=== PATIENT | female | born 1970 ===

== ENCOUNTER 2020-10-06 17:25 | Inpatient (IN) | payer MEDICAID, OTHER ==
[~2020-10-06] VITALS: Ht 157.5 cm; Wt 108.0 kg
[~2020-10-06 17:25] MED LIST: EPINEPHRINE SYRINGE 0.1 MG/ML, 10ML ONE; ETOMIDATE 20 MG/10 ML ONE; PROPOFOL 10 MG/ML, 100ML IV ONE; ROCURONIUM 10MG/ML,5ML ONE
[2020-10-06] MEDS ORDERED: SODIUM CHLORIDE 0.9% 1,000ML IVBOLUS ONE (17:30)
[2020-10-06 18:08] LABS: BASOPHILS % (AUTO) 1 % (0-1); EOSINOPHILS % (AUTO) 0 % (1-7); LYMPHOCYTES % (AUTO) 17 % (22-44); MEAN CORPUSCULAR HEMOGLOBIN 27.7 pg (27.0-34.8); MONOCYTES % (AUTO) 9 % (2-9); NEUTROPHILS % (AUTO) 73 % (42-75); PLATELET COUNT 287 x10^3/uL (130-400); RED BLOOD COUNT 3.82 x10^6/uL (3.82-5.3)
[2020-10-06 18:37] LABS: ALANINE AMINOTRANSFERASE 61 U/L (12-78); ALBUMIN 3.1 g/dL (3.4-5.0); ANION GAP 11 mmol/L (5-15); CALCIUM 9.3 mg/dL (8.5-10.1); CHLORIDE 92 mmol/L (98-107); CREATININE 1.67 mg/dL (0.55-1.02)
[2020-10-06 18:39] LABS: ALKALINE PHOSPHATASE 164 U/L (45-117); BILIRUBIN,TOTAL 0.8 mg/dL (0.2-1.0); TOTAL PROTEIN 7.8 g/dL (6.4-8.2)
[2020-10-06] MEDS ORDERED: ACETAMINOPHEN 650 MG SUPP ONE (18:39)
[2020-10-06 18:40] LABS: SALICYLATE LEVEL < 1.7 mg/dL (2.8-20.0)
[2020-10-06] MEDS ORDERED: ACETAMINOPHEN 650 MG SUPP PR ONE (19:00)
[2020-10-06] MEDS ORDERED: ACETAMINOPHEN 500 MG TABLET PO ONE (19:00)
[2020-10-06] MEDS ORDERED: CEFTRIAXONE 1,000 MG in DEXTROSE 5% 50 ML IVPB ONE (19:00)
--- NOTE | 2020-10-06 19:05 | NUR ---
LATE ENTRY FOR 1850, PT RECTAL TEMP 102.[address] TEAGUE. SEPSIS WORKUP DISCUSSED AND NEW ORDERS REC'D. SBAR RPT TO CHARLI JACKSON.
--- NOTE | 2020-10-06 19:26 | NUR ---
PT BP TRENDING DOWN. BC X2 DRAWN AND ANTIBIOTICS STARTED NOTED. DR TEAGUE AT [facility], SEPSIS DISCUSSED. PT HAS REC'D 1000ML NS 2ND LITER OF NS ORDERED. DR TEAGUE GIVING BOLUS BASED ON PT IDEAL BODY WEIGHT SO PT WILL RECIEVE A TOTAL OF 2000ML NSFOR THE SEPSIS BOLUS. CHARLI JACKSON UPDATED.
[2020-10-06 19:37] LABS: MICROSCOPIC AUTO
[2020-10-06] MEDS ORDERED: NALOXONE 0.4 MG/ML, 1ML ONE (19:53)
[2020-10-06] MEDS ORDERED: NALOXONE 1 MG/ML, 2ML ONE (19:53)
--- NOTE | 2020-10-06 20:04 | NUR ---
DR SOMERS AT BEDSIDE FOR INTUBATION AT THIS TIME PT INTUBATED WITH 20 OF ETOMIDATE AND 100 OF FROY WITH 7.5 ET TUBE 20 AT THE LIP. Addendum: 10/06/20 at 2228 by [email or web address] VENT SETTINGS 70% FIO2, PEEP 5, VT 450, RATE 18
[2020-10-06] MEDS: PROPOFOL 100 ML IV PRN (20:10)
--- NOTE | 2020-10-06 20:10 | NUR ---
this rn went to check on pt, pt was recieving 2nd liter ns per erp. and 02 on nc was noted to be in the low 80's. fluids stopped. pt's bp was trending down and rechecked mutliple time with same results. pt still not resonsive. norebreather did not help 02 sats as well. erp was at bedside, pt was prepped for intubation. report was given to neno solares as well.
--- NOTE | 2020-10-06 20:22 | NUR ---
pilar Morton tech -2020 hours - starting iv and insert central line first per physician
[2020-10-06 20:30] LABS: AMPHETAMINE SCREEN, URINE Negative (Negative); BARBITURATE SCREEN, URINE Negative (Negative); BENZODIAZEPINE SCREEN, URINE Negative (Negative); CANNABINOID SCREEN, URINE Negative (Negative); COCAINE SCREEN, URINE Negative (Negative); METHADONE SCREEN, URINE Negative (Negative); OPIATE SCREEN, URINE Positive (Negative)
[2020-10-06] MEDS ORDERED: AZITHROMYCIN 500 MG in SODIUM CHLORIDE 0.9% 250 ML IV ONE (20:30)
[2020-10-06] MEDS ORDERED: ETOMIDATE 20 MG/10 ML IVPush ONE (20:30)
[2020-10-06] MEDS ORDERED: NOREPINEPHRINE 8 MG in SODIUM CHLORIDE 0.9% 242 ML IV PRN ×2 (20:30→23:00)
[2020-10-06] MEDS ORDERED: ROCURONIUM 10 MG/ML,10ML IVPush ONE (20:30)
--- NOTE | 2020-10-06 21:05 | NUR ---
DR SOMERS AT BEDSIDE FOR CENTRAL LINE PLACEMENT
[2020-10-06] MEDS ORDERED: FENTANYL PF 100 MCG/2ML ONE ×2 (21:11→22:38)
[2020-10-06] MEDS ORDERED: SODIUM CHLORIDE 0.9% 1,000 ML IV SCH (21:30)
[2020-10-06] MEDS ORDERED: ACETAMINOPHEN 650 MG/20.3 ML UDC PO/NG PRN (21:30)
[2020-10-06] MEDS ORDERED: PHARMACY MAY ADJ FOR RENAL FX MC SCH (21:30)
[2020-10-06] MEDS ORDERED: SENNA/DOCUSATE TABLET NG PRN (21:30)
[2020-10-06] MEDS ORDERED: DEXTROSE 4 GM TAB.CHEW PO PRN (21:30)
[2020-10-06] MEDS ORDERED: FENTANYL PF 100 MCG/2ML IVPush ONE (21:30)
[2020-10-06] MEDS ORDERED: DEXTROSE 50%, 50ML SYRINGE IVPush PRN (21:30)
[2020-10-06] MEDS ORDERED: LACTULOSE 20 GM/30 ML UDC NG PRN (21:30)
[2020-10-06] MEDS ORDERED: ENOXAPARIN 40 MG/0.4 ML SQ SCH (21:30)
[2020-10-06] MEDS ORDERED: SENNA 176 MG/5 ML ORAL SOL NG PRN (21:30)
[2020-10-06] MEDS ORDERED: LIDOCAINE-MPF 1%, 2ML ENDO PRN (21:30)
[2020-10-06] MEDS ORDERED: BISACODYL 10 MG SUPP PR PRN (21:30)
[2020-10-06] MEDS ORDERED: GLUCAGON 1 MG IM PRN (21:30)
--- NOTE | 2020-10-06 21:43 | NUR ---
LEVOPHED GTT STARTED AT THIS TIME DUE TO HYPOTENSION OF 95/37
[2020-10-06] MEDS: MIDAZOLAM HCL 50 MG in SODIUM CHLORIDE 0.9% 40 ML IV PRN (22:00)
[2020-10-06] MEDS ORDERED: VANCOMYCIN PER PHARMACY MC PRN (22:00)
--- NOTE | 2020-10-06 22:00 | NUR ---
VERSED GTT STARTED AT THIS TIME
[2020-10-06] MEDS ORDERED: FAMOTIDINE 20 MG/2 ML ONE (22:14)
[2020-10-06] MEDS: FAMOTIDINE 20 MG/2 ML IV SCH (22:22)
[2020-10-06] MEDS: FENTANYL PF 100 MCG/2ML IVPush PRN (22:42)
--- NOTE | 2020-10-06 22:51 | NUR ---
DR MICHELLE AT BEDSIDE FOR ADMIT AT THIS TIME
--- NOTE | 2020-10-06 23:01 | NUR ---
PER DR MICHELLE CALCULATE FLUID BOLUS AMNT AND FINISH THAT AT THIS TIME. ADDITIONAL 1348 ML NS STARTED
[2020-10-06] MEDS ORDERED: VANCOMYCIN 2,500 MG in SODIUM CHLORIDE 0.9% 500 ML IV ONE (23:45)
--- NOTE | 2020-10-07 | NUR ---
LAURA SPIVEY SENT TO PHARM FOR KETURAH AT THIS TIME
[2020-10-07] MEDS: PIPERACILLIN/TAZO 3.375 GM in DEXTROSE 5% 50 ML IV SCH ×2 (00:05→05:45)
--- NOTE | 2020-10-07 00:05 | NUR ---
ZOSYN STARTED AT THIS TIME.
[2020-10-07] MEDS ORDERED: FENTANYL PF 100 MCG/2ML ONE (00:39)
[2020-10-07] MEDS ORDERED: PROPOFOL 100 ML IV ONE (00:52)
--- NOTE | 2020-10-07 00:55 | NUR ---
LEXIO STARTED AT THIS TIME
--- NOTE | 2020-10-07 01:42 | NUR ---
REPORT TO ANDI AUGUSTIN PT READY FOR TRANSFER TO 771
[2020-10-07] MEDS ORDERED: PHARMACOKINETIC CONSULTATION MC ONE (02:30)
[2020-10-07] MEDS ORDERED: PHARMACOKINETIC MONITORING MC PRN (02:30)
[2020-10-07] MEDS: INSULIN LISPRO 100 UNITS/ML, PEN SQ-INSULIN SCH ×4 (02:54→20:35)
[2020-10-07 05:30] LABS: ANION GAP 6 mmol/L (5-15); CALCIUM 8.2 mg/dL (8.5-10.1); CHLORIDE 106 mmol/L (98-107); CREATININE 0.91 mg/dL (0.55-1.02)
[2020-10-07 05:31] LABS: BASOPHILS % (AUTO) 1 % (0-1); EOSINOPHILS % (AUTO) 0 % (1-7); LYMPHOCYTES % (AUTO) 15 % (22-44); MEAN CORPUSCULAR HEMOGLOBIN 27.5 pg (27.0-34.8); MEAN CORPUSCULAR HGB CONC 32.6 g/dL (32.4-35.8); MEAN PLATELET VOLUME 7.8 fL (7.4-10.4); MONOCYTES % (AUTO) 9 % (2-9); NEUTROPHILS % (AUTO) 76 % (42-75); PLATELET COUNT 249 x10^3/uL (130-400); RED BLOOD COUNT 3.68 x10^6/uL (3.82-5.3); RED CELL DISTRIBUTION WIDTH 16.6 % (9.6-15.2)
[2020-10-07] MEDS: MIDAZOLAM HCL 50 MG in SODIUM CHLORIDE 0.9% 40 ML IV PRN ×2 (05:45→15:28)
[2020-10-07] MEDS ORDERED: MAGNESIUM SULFATE PMX 4GM/100M 100 ML IVPB ONE (08:00)
[2020-10-07] MEDS: FAMOTIDINE 20 MG/2 ML IV SCH ×2 (08:45→21:04)
[2020-10-07] MEDS: SODIUM CHLORIDE FLUSH 10ML SYR IVF SCH ×2 (08:45→21:04)
[2020-10-07] MEDS: INSULIN GLARGINE 100 UNITS/ML, PEN SQ-INSULIN SCH ×2 (08:45→20:34)
[2020-10-07] MEDS: POTASSIUM CHLORIDE 20 MEQ PACKET PO SCH ×2 (08:45→15:31)
[2020-10-07 08:47] LABS: SALICYLATE LEVEL < 1.7 mg/dL (2.8-20.0)
[2020-10-07] MEDS: METRONIDAZOLE PMX 500MG/100ML 100 ML IV SCH ×2 (09:02→14:25)
[2020-10-07] MEDS: CEFTRIAXONE 2 GM in DEXTROSE 5% 50 ML IVPB SCH (09:02)
[2020-10-07] MEDS: FENTANYL PF 100 MCG/2ML IVPush PRN ×2 (13:09→19:33)
[2020-10-07] MEDS: ENOXAPARIN 40 MG/0.4 ML SQ SCH (15:30)
[2020-10-07] MEDS ORDERED: PANT40GR PO (22:40)
[2020-10-07] MEDS ORDERED: GLIP10TA13 PO (22:46)
[2020-10-07] MEDS ORDERED: FAMO20TA7 PO (22:50)
[2020-10-07] MEDS ORDERED: FURO20TA3 PO (22:51)
[2020-10-07] MEDS ORDERED: METF500T27 PO (22:54)
[2020-10-07] MEDS ORDERED: ATOR40TA78 PO (22:56)
[2020-10-07] MEDS ORDERED: HYDR1TAB53 PO (22:58)
[2020-10-07] MEDS ORDERED: GABA800T5 PO (23:00)
[2020-10-07] MEDS ORDERED: VENL150C6 PO (23:02)
[2020-10-07] MEDS ORDERED: LOSA100T2 PO (23:04)
[2020-10-07] MEDS ORDERED: SUCR1TAB PO (23:06)
[2020-10-07] MEDS ORDERED: BIOT50002 PO (23:09)
[2020-10-08] MEDS: METRONIDAZOLE PMX 500MG/100ML 100 ML IV SCH ×4 (00:30→23:59)
[2020-10-08] MEDS: FENTANYL PF 100 MCG/2ML IVPush PRN ×4 (00:43→09:16)
[2020-10-08] MEDS: INSULIN LISPRO 100 UNITS/ML, PEN SQ-INSULIN SCH ×4 (03:01→21:14)
[2020-10-08] MEDS: ENOXAPARIN 40 MG/0.4 ML SQ SCH ×2 (03:03→15:37)
[2020-10-08 03:15] LABS: BASOPHILS % (AUTO) 1 % (0-1); EOSINOPHILS % (AUTO) 2 % (1-7); LYMPHOCYTES % (AUTO) 24 % (22-44); MEAN CORPUSCULAR HEMOGLOBIN 27.6 pg (27.0-34.8); MEAN CORPUSCULAR HGB CONC 32.8 g/dL (32.4-35.8); MEAN PLATELET VOLUME 7.5 fL (7.4-10.4); MONOCYTES % (AUTO) 9 % (2-9); NEUTROPHILS % (AUTO) 64 % (42-75); PLATELET COUNT 233 x10^3/uL (130-400); RED BLOOD COUNT 3.61 x10^6/uL (3.82-5.3); RED CELL DISTRIBUTION WIDTH 16.9 % (9.6-15.2)
[2020-10-08 03:20] LABS: ANION GAP 7 mmol/L (5-15); CALCIUM 8.2 mg/dL (8.5-10.1); CHLORIDE 103 mmol/L (98-107); CREATININE 0.51 mg/dL (0.55-1.02)
[2020-10-08] MEDS: MIDAZOLAM HCL 50 MG in SODIUM CHLORIDE 0.9% 40 ML IV PRN (03:52)
[2020-10-08] MEDS: SODIUM CHLORIDE 0.9% 1,000 ML IV SCH ×2 (06:17→21:23)
[2020-10-08] MEDS: CEFTRIAXONE 2 GM in DEXTROSE 5% 50 ML IVPB SCH (07:16)
[2020-10-08] MEDS: INSULIN GLARGINE 100 UNITS/ML, PEN SQ-INSULIN SCH ×2 (07:21→19:54)
[2020-10-08] MEDS: SODIUM CHLORIDE FLUSH 10ML SYR IVF SCH ×2 (07:25→21:13)
[2020-10-08] MEDS: FAMOTIDINE 20 MG/2 ML IV SCH ×2 (07:25→21:23)
[2020-10-08] MEDS ORDERED: FENTANYL PF 1,000 MCG in SODIUM CHLORIDE 0.9% 80 ML IV PRN (09:00)
[2020-10-08] MEDS ORDERED: SODIUM PHOSPHATE 20 MMOL in SODIUM CHLORIDE 0.9% 500 ML IV ONE (10:30)
[2020-10-08] MEDS: DEXMEDETOMIDINE 400 MCG in SODIUM CHLORIDE 0.9% 96 ML IV PRN ×4 (11:03→19:46)
--- NOTE | 2020-10-08 13:28 | NUR ---
IF TUBE FEED recommendation needed: Recommend Vital High Protein. Goal: 50 ml/hr on propofol, 60 ml/hr off propofol Addendum: 10/08/20 at [address] Amended: Links added.
[2020-10-08] MEDS: POTASSIUM CHLORIDE 20 MEQ PACKET PO SCH (15:37)
[2020-10-08] MEDS: FENTANYL PF 2,500 MCG in SODIUM CHLORIDE 0.9% 200 ML IV PRN (21:07)
[2020-10-08] MEDS: GABAPENTIN 250 MG/5 ML ORAL SOL NG SCH (21:13)
[2020-10-08] MEDS: DEXMEDETOMIDINE 1,000 MCG in SODIUM CHLORIDE 0.9% 240 ML IV PRN (23:05)
[2020-10-09] MEDS: INSULIN LISPRO 100 UNITS/ML, PEN SQ-INSULIN SCH ×4 (02:53→21:12)
[2020-10-09] MEDS: ENOXAPARIN 40 MG/0.4 ML SQ SCH ×2 (03:13→15:19)
[2020-10-09] MEDS: PROPOFOL 100 ML IV PRN ×5 (03:22→22:29)
[2020-10-09 04:16] LABS: BASOPHILS % (AUTO) 1 % (0-1); EOSINOPHILS % (AUTO) 4 % (1-7); LYMPHOCYTES % (AUTO) 35 % (22-44); MEAN CORPUSCULAR HEMOGLOBIN 27.5 pg (27.0-34.8); MEAN CORPUSCULAR HGB CONC 32.6 g/dL (32.4-35.8); MEAN PLATELET VOLUME 7.5 fL (7.4-10.4); MONOCYTES % (AUTO) 9 % (2-9); NEUTROPHILS % (AUTO) 52 % (42-75); PLATELET COUNT 274 x10^3/uL (130-400); RED BLOOD COUNT 3.68 x10^6/uL (3.82-5.3); RED CELL DISTRIBUTION WIDTH 16.7 % (9.6-15.2)
[2020-10-09 04:25] LABS: ANION GAP 8 mmol/L (5-15); CALCIUM 7.5 mg/dL (8.5-10.1); CHLORIDE 106 mmol/L (98-107); CREATININE 0.44 mg/dL (0.55-1.02); TRIGLYCERIDES 249 mg/dL (50-200)
[2020-10-09] MEDS: GABAPENTIN 250 MG/5 ML ORAL SOL NG SCH ×4 (05:32→21:58)
[2020-10-09] MEDS ORDERED: MAGNESIUM SULFATE PMX 2GM/50ML 50 ML IV ONE (07:00)
[2020-10-09] MEDS: CEFTRIAXONE 2 GM in DEXTROSE 5% 50 ML IVPB SCH (07:28)
[2020-10-09] MEDS: METRONIDAZOLE PMX 500MG/100ML 100 ML IV SCH ×3 (07:28→23:39)
[2020-10-09] MEDS: INSULIN GLARGINE 100 UNITS/ML, PEN SQ-INSULIN SCH ×2 (07:32→19:33)
[2020-10-09] MEDS: SODIUM CHLORIDE FLUSH 10ML SYR IVF SCH ×2 (07:35→21:58)
[2020-10-09] MEDS: DEXMEDETOMIDINE 1,000 MCG in SODIUM CHLORIDE 0.9% 240 ML IV PRN (07:50)
[2020-10-09] MEDS: FUROSEMIDE 40 MG/4 ML IV SCH ×2 (09:06→21:58)
[2020-10-09] MEDS: FAMOTIDINE 20 MG/2 ML IV SCH ×2 (09:06→21:58)
[2020-10-09] MEDS: POTASSIUM CHLORIDE 20 MEQ PACKET PO SCH (09:06)
[2020-10-09] MEDS: FENTANYL PF 2,500 MCG in SODIUM CHLORIDE 0.9% 200 ML IV PRN (12:45)
[2020-10-09] MEDS: FERROUS SULFATE 220 MG/5 ML ORAL SOL PO SCH (15:19)
[2020-10-10] MEDS: PROPOFOL 100 ML IV PRN ×2 (01:37→05:56)
[2020-10-10] MEDS: INSULIN LISPRO 100 UNITS/ML, PEN SQ-INSULIN SCH ×4 (03:18→20:54)
[2020-10-10] MEDS: ENOXAPARIN 40 MG/0.4 ML SQ SCH ×2 (03:26→16:10)
[2020-10-10 04:37] LABS: BASOPHILS % (AUTO) 1 % (0-1); EOSINOPHILS % (AUTO) 5 % (1-7); LYMPHOCYTES % (AUTO) 39 % (22-44); MEAN CORPUSCULAR HEMOGLOBIN 27.5 pg (27.0-34.8); MEAN CORPUSCULAR HGB CONC 32.7 g/dL (32.4-35.8); MEAN PLATELET VOLUME 7.3 fL (7.4-10.4); MONOCYTES % (AUTO) 9 % (2-9); NEUTROPHILS % (AUTO) 47 % (42-75); PLATELET COUNT 310 x10^3/uL (130-400); RED BLOOD COUNT 3.66 x10^6/uL (3.82-5.3); RED CELL DISTRIBUTION WIDTH 16.4 % (9.6-15.2)
[2020-10-10 04:38] LABS: ANION GAP 7 mmol/L (5-15); CALCIUM 7.8 mg/dL (8.5-10.1); CHLORIDE 104 mmol/L (98-107)
[2020-10-10 04:39] LABS: CREATININE 0.58 mg/dL (0.55-1.02)
[2020-10-10] MEDS: GABAPENTIN 250 MG/5 ML ORAL SOL NG SCH ×3 (06:03→16:10)
[2020-10-10] MEDS ORDERED: MAGNESIUM SULFATE PMX 2GM/50ML 50 ML IV ONE (07:00)
[2020-10-10] MEDS: CEFTRIAXONE 2 GM in DEXTROSE 5% 50 ML IVPB SCH (07:34)
[2020-10-10] MEDS: FERROUS SULFATE 220 MG/5 ML ORAL SOL PO SCH ×2 (07:49→17:21)
[2020-10-10] MEDS: POTASSIUM CHLORIDE 20 MEQ PACKET PO SCH ×3 (07:49→18:34)
[2020-10-10] MEDS: METRONIDAZOLE PMX 500MG/100ML 100 ML IV SCH ×2 (08:44→16:10)
[2020-10-10] MEDS: FUROSEMIDE 40 MG/4 ML IV SCH ×2 (08:55→20:51)
[2020-10-10] MEDS: FAMOTIDINE 20 MG/2 ML IV SCH (08:55)
[2020-10-10] MEDS: INSULIN GLARGINE 100 UNITS/ML, PEN SQ-INSULIN SCH ×2 (09:04→20:53)
[2020-10-10] MEDS: SODIUM CHLORIDE FLUSH 10ML SYR IVF SCH ×2 (09:05→20:52)
[2020-10-10] MEDS ORDERED: LABETALOL 5MG/ML, 20ML IVPush PRN (11:00)
[2020-10-10] MEDS ORDERED: ENALAPRILAT 1.25 MG/ML, 2ML IV PRN (13:30)
[2020-10-10] MEDS: GABAPENTIN 400 MG CAPSULE PO SCH (20:52)
[2020-10-10] MEDS ORDERED: FAMOTIDINE 20 MG/2 ML IV SCH (21:00)
[2020-10-11] MEDS: POTASSIUM CHLORIDE 20 MEQ PACKET PO SCH (00:12)
[2020-10-11] MEDS: METRONIDAZOLE PMX 500MG/100ML 100 ML IV SCH ×2 (00:13→09:22)
[2020-10-11] MEDS ORDERED: ONDANSETRON 2MG/ML, 2ML ONE (02:49)
[2020-10-11] MEDS: ONDANSETRON 2MG/ML, 2ML IVPush PRN ×2 (02:58→08:19)
[2020-10-11] MEDS: HYDROcodone/APAP 5/325 TABLET PO PRN (04:10)
[2020-10-11] MEDS: GABAPENTIN 400 MG CAPSULE PO SCH ×4 (06:00→20:49)
[2020-10-11] MEDS: ENOXAPARIN 40 MG/0.4 ML SQ SCH (06:00)
[2020-10-11] MEDS: CEFTRIAXONE 2 GM in DEXTROSE 5% 50 ML IVPB SCH (08:11)
[2020-10-11] MEDS: INSULIN LISPRO 100 UNITS/ML, PEN SQ-INSULIN SCH ×4 (08:16→21:00)
[2020-10-11] MEDS: INSULIN GLARGINE 100 UNITS/ML, PEN SQ-INSULIN SCH ×2 (08:17→21:00)
[2020-10-11] MEDS: FAMOTIDINE 20 MG TABLET PO SCH ×2 (08:19→20:49)
[2020-10-11 08:42] LABS: BASOPHILS % (AUTO) 1 % (0-1); EOSINOPHILS % (AUTO) 2 % (1-7); LYMPHOCYTES % (AUTO) 31 % (22-44); MEAN CORPUSCULAR HEMOGLOBIN 27.4 pg (27.0-34.8); MEAN CORPUSCULAR HGB CONC 32.4 g/dL (32.4-35.8); MEAN PLATELET VOLUME 7.4 fL (7.4-10.4); MONOCYTES % (AUTO) 9 % (2-9); NEUTROPHILS % (AUTO) 57 % (42-75); PLATELET COUNT 533 x10^3/uL (130-400); RED BLOOD COUNT 4.82 x10^6/uL (3.82-5.3); RED CELL DISTRIBUTION WIDTH 17.1 % (9.6-15.2)
[2020-10-11 08:55] LABS: ANION GAP 14 mmol/L (5-15); CALCIUM 9.4 mg/dL (8.5-10.1); CHLORIDE 99 mmol/L (98-107)
[2020-10-11 08:56] LABS: CREATININE 0.71 mg/dL (0.55-1.02)
[2020-10-11] MEDS: FUROSEMIDE 40 MG/4 ML IV SCH (09:22)
[2020-10-11] MEDS: FERROUS SULFATE 325 MG TABLET PO SCH ×2 (09:22→16:54)
[2020-10-11] MEDS: SODIUM CHLORIDE FLUSH 10ML SYR IVF SCH ×2 (09:23→21:01)
[2020-10-11] MEDS ORDERED: OMNIPAQUE 350 MG/ML, 100ML BOTTLE ONE (10:54)
[2020-10-11 11:19] VITALS: BP 139/89
[2020-10-11] MEDS ORDERED: SENNOSIDES 8.6 MG TABLET PO PRN (11:30)
[2020-10-11] MEDS: SODIUM CHLORIDE 0.9% 1,000 ML IV SCH ×2 (12:03→22:15)
[2020-10-11 13:07] VITALS: BP 144/95
[2020-10-11 14:01] VITALS: BP 126/85
[2020-10-11] MEDS: PIPERACILLIN/TAZO 4.5 GM in DEXTROSE 5% 100 ML IV SCH ×2 (15:38→23:22)
[2020-10-11 17:10] LABS: MICROSCOPIC AUTO
[2020-10-11 20:55] VITALS: BP 124/72
[2020-10-12 01:07] VITALS: BP 116/79
[2020-10-12 05:53] LABS: BASOPHILS % (AUTO) 1 % (0-1); EOSINOPHILS % (AUTO) 3 % (1-7); LYMPHOCYTES % (AUTO) 34 % (22-44); MEAN CORPUSCULAR HEMOGLOBIN 27.8 pg (27.0-34.8); MEAN CORPUSCULAR HGB CONC 32.6 g/dL (32.4-35.8); MEAN PLATELET VOLUME 7.6 fL (7.4-10.4); MONOCYTES % (AUTO) 11 % (2-9); NEUTROPHILS % (AUTO) 51 % (42-75); PLATELET COUNT 490 x10^3/uL (130-400); RED BLOOD COUNT 4.35 x10^6/uL (3.82-5.3); RED CELL DISTRIBUTION WIDTH 16.9 % (9.6-15.2)
[2020-10-12] MEDS: GABAPENTIN 400 MG CAPSULE PO SCH ×4 (06:08→20:09)
[2020-10-12 07:34] LABS: ANION GAP 8 mmol/L (5-15); CALCIUM 9.2 mg/dL (8.5-10.1); CHLORIDE 99 mmol/L (98-107); CREATININE 0.68 mg/dL (0.55-1.02)
[2020-10-12 07:44] VITALS: BP 135/86
[2020-10-12] MEDS: FERROUS SULFATE 325 MG TABLET PO SCH ×2 (08:32→17:36)
[2020-10-12] MEDS: FAMOTIDINE 20 MG TABLET PO SCH ×2 (08:32→20:09)
[2020-10-12] MEDS: PIPERACILLIN/TAZO 4.5 GM in DEXTROSE 5% 100 ML IV SCH ×3 (08:32→23:40)
[2020-10-12] MEDS: INSULIN GLARGINE 100 UNITS/ML, PEN SQ-INSULIN SCH ×2 (08:36→20:26)
[2020-10-12] MEDS: INSULIN LISPRO 100 UNITS/ML, PEN SQ-INSULIN SCH ×4 (08:37→20:26)
[2020-10-12] MEDS: SODIUM CHLORIDE FLUSH 10ML SYR IVF SCH ×2 (09:00→20:07)
[2020-10-12] MEDS ORDERED: ENOXAPARIN 40 MG/0.4 ML SQ SCH (09:00)
[2020-10-12 12:36] VITALS: BP 129/83
[2020-10-12 18:42] VITALS: BP 139/79
[2020-10-12] MEDS: ENOXAPARIN 40 MG/0.4 ML SQ SCH (21:29)
[2020-10-12] MEDS: HYDROcodone/APAP 5/325 TABLET PO PRN (23:50)
[2020-10-13 02:01] VITALS: BP 141/85
[2020-10-13] MEDS: GABAPENTIN 400 MG CAPSULE PO SCH ×4 (05:56→20:54)
[2020-10-13 06:12] LABS: MEAN CORPUSCULAR HEMOGLOBIN 28.1 pg (27.0-34.8); MEAN CORPUSCULAR HGB CONC 33.3 g/dL (32.4-35.8); MEAN PLATELET VOLUME 7.6 fL (7.4-10.4); PLATELET COUNT 427 x10^3/uL (130-400); RED BLOOD COUNT 4.08 x10^6/uL (3.82-5.3); RED CELL DISTRIBUTION WIDTH 17.2 % (9.6-15.2)
[2020-10-13 06:39] LABS: CHLORIDE 100 mmol/L (98-107)
[2020-10-13 06:43] LABS: ANION GAP 11 mmol/L (5-15); CALCIUM 9.3 mg/dL (8.5-10.1); CREATININE 0.56 mg/dL (0.55-1.02)
[2020-10-13 06:50] LABS: <PLATELET ESTIMATE> INCREASED; <PLT MORPHOLOGY> NORMAL PLT MORPH; BAND#(MANUAL) 0.31 x10^3/uL; BANDS%(MANUAL) 3 % (0-7); EOS% (MANUAL) 2 % (1-7); LYMPH#(MANUAL) 3.16 x10^3/uL (1-3.4); LYMPHS% (MANUAL) 31 % (22-44); METAMYELOCYTES% (MANUAL) 2 % (0-1); MONOS#(MANUAL) 0.71 x10^3/uL (0.3-2.7); MONOS% (MANUAL) 7 % (2-9); MYELOCYTES% (MANUAL) 1 % (0-0); PMNS WITH VACUOLES 1+; POLYCHROMASIA 1+; SEG#(MANUAL) 5.51 x10^3/uL (1.8-6.8); SEGS% (MANUAL) 54 % (42-75)
[2020-10-13 07:30] VITALS: BP 145/98
[2020-10-13] MEDS: FAMOTIDINE 20 MG TABLET PO SCH ×2 (08:19→20:54)
[2020-10-13] MEDS: FERROUS SULFATE 325 MG TABLET PO SCH ×2 (08:19→16:49)
[2020-10-13] MEDS: PIPERACILLIN/TAZO 4.5 GM in DEXTROSE 5% 100 ML IV SCH ×2 (08:19→16:26)
[2020-10-13] MEDS: INSULIN LISPRO 100 UNITS/ML, PEN SQ-INSULIN SCH ×4 (08:21→21:20)
[2020-10-13] MEDS: INSULIN GLARGINE 100 UNITS/ML, PEN SQ-INSULIN SCH ×2 (08:21→21:20)
[2020-10-13] MEDS ORDERED: MAGNESIUM SULFATE PMX 2GM/50ML 50 ML IV ONE (08:30)
[2020-10-13] MEDS: ENOXAPARIN 40 MG/0.4 ML SQ SCH ×2 (09:00→20:54)
[2020-10-13] MEDS: SODIUM CHLORIDE FLUSH 10ML SYR IVF SCH ×2 (09:00→20:31)
[2020-10-13] MEDS: POTASSIUM CHLORIDE 20 MEQ TAB.ER.PRT PO SCH ×3 (09:46→20:54)
[2020-10-13] MEDS: MAGNESIUM OXIDE 400 MG TABLET PO SCH (09:46)
[2020-10-13 12:34] VITALS: BP 152/100
[2020-10-13] MEDS: HYDROcodone/APAP 5/325 TABLET PO PRN (19:19)
[2020-10-13 19:23] VITALS: BP 149/110
[2020-10-14] MEDS: PIPERACILLIN/TAZO 4.5 GM in DEXTROSE 5% 100 ML IV SCH ×4 (00:49→23:51)
[2020-10-14 02:59] VITALS: BP 167/90
[2020-10-14 05:26] LABS: MEAN PLATELET VOLUME 7.5 fL (7.4-10.4); PLATELET COUNT 427 x10^3/uL (130-400)
[2020-10-14 05:30] LABS: ANION GAP 7 mmol/L (5-15); CALCIUM 8.7 mg/dL (8.5-10.1); CHLORIDE 104 mmol/L (98-107)
[2020-10-14] MEDS: GABAPENTIN 400 MG CAPSULE PO SCH ×4 (05:32→20:36)
[2020-10-14 05:40] LABS: CREATININE 0.61 mg/dL (0.55-1.02)
[2020-10-14 06:06] LABS: <PLATELET ESTIMATE> INCREASED; <PLT MORPHOLOGY> NORMAL PLT MORPH; ANISOCYTOSIS 1+; EOS#(MANUAL) 0.23 x10^3/uL (0.0-0.4); EOS% (MANUAL) 2 % (1-7); LYMPHS% (MANUAL) 41 % (22-44); MONOS#(MANUAL) 0.59 x10^3/uL (0.3-2.7); MONOS% (MANUAL) 5 % (2-9); MYELOCYTES# (MANUAL) 0.12 x10^3/uL (0-0); MYELOCYTES% (MANUAL) 1 % (0-0); POLYCHROMASIA 1+; SEG#(MANUAL) 5.97 x10^3/uL (1.8-6.8); SEGS% (MANUAL) 51 % (42-75)
[2020-10-14] MEDS: FERROUS SULFATE 325 MG TABLET PO SCH ×2 (08:00→16:49)
[2020-10-14] MEDS: FAMOTIDINE 20 MG TABLET PO SCH ×2 (08:04→20:36)
[2020-10-14] MEDS: ENOXAPARIN 40 MG/0.4 ML SQ SCH ×2 (08:04→20:36)
[2020-10-14] MEDS: SODIUM CHLORIDE FLUSH 10ML SYR IVF SCH ×2 (08:04→20:40)
[2020-10-14] MEDS: MAGNESIUM OXIDE 400 MG TABLET PO SCH (08:04)
[2020-10-14] MEDS: INSULIN GLARGINE 100 UNITS/ML, PEN SQ-INSULIN SCH ×2 (08:05→20:37)
[2020-10-14] MEDS ORDERED: CYCL10TA2 PO (08:08)
[2020-10-14] MEDS ORDERED: TIZA4CAP PO (08:08)
[2020-10-14] MEDS: INSULIN LISPRO 100 UNITS/ML, PEN SQ-INSULIN SCH ×4 (08:11→20:36)
[2020-10-14 08:12] VITALS: BP 137/99
[2020-10-14 14:46] VITALS: BP 156/99
[2020-10-14] MEDS: LOSARTAN 100 MG TAB PO SCH (18:13)
[2020-10-14] MEDS: TIZANIDINE 4MG TABLET PO SCH (20:36)
[2020-10-14 20:41] VITALS: BP 155/99
[2020-10-14] MEDS: CYCLOBENZAPRINE 10 MG TABLET PO PRN (23:45)
[2020-10-15 00:46] VITALS: BP 102/70
[2020-10-15] MEDS: HYDROcodone/APAP 5/325 TABLET PO PRN ×2 (00:53→14:48)
[2020-10-15 05:18] LABS: MEAN CORPUSCULAR HEMOGLOBIN 27.8 pg (27.0-34.8); MEAN CORPUSCULAR HGB CONC 32.5 g/dL (32.4-35.8); MEAN PLATELET VOLUME 7.3 fL (7.4-10.4); PLATELET COUNT 409 x10^3/uL (130-400); RED BLOOD COUNT 3.91 x10^6/uL (3.82-5.3); RED CELL DISTRIBUTION WIDTH 17.1 % (9.6-15.2)
[2020-10-15 05:36] LABS: CHLORIDE 104 mmol/L (98-107)
[2020-10-15 05:47] LABS: ALANINE AMINOTRANSFERASE 54 U/L (12-78); ALBUMIN 2.3 g/dL (3.4-5.0); ALKALINE PHOSPHATASE 110 U/L (45-117); ANION GAP 7 mmol/L (5-15); BILIRUBIN,TOTAL 0.3 mg/dL (0.2-1.0); CALCIUM 8.5 mg/dL (8.5-10.1); CREATININE 0.54 mg/dL (0.55-1.02); TOTAL PROTEIN 6.7 g/dL (6.4-8.2)
[2020-10-15] MEDS: GABAPENTIN 400 MG CAPSULE PO SCH ×4 (05:58→21:39)
[2020-10-15 06:03] LABS: BAND#(MANUAL) 0.12 x10^3/uL; BANDS%(MANUAL) 1 % (0-7); EOS#(MANUAL) 0.62 x10^3/uL (0.0-0.4); EOS% (MANUAL) 5 % (1-7); LYMPH#(MANUAL) 4.55 x10^3/uL (1-3.4); LYMPHS% (MANUAL) 37 % (22-44); METAMYELOCYTES# (MANUAL) 0.25 x10^3/uL (0-0); METAMYELOCYTES% (MANUAL) 2 % (0-1); MONOS#(MANUAL) 0.62 x10^3/uL (0.3-2.7); MONOS% (MANUAL) 5 % (2-9); SEG#(MANUAL) 6.15 x10^3/uL (1.8-6.8); SEGS% (MANUAL) 50 % (42-75)
[2020-10-15 06:04] LABS: <PLATELET ESTIMATE> INCREASED; <PLT MORPHOLOGY> NORMAL PLT MORPH; ANISOCYTOSIS 1+; POLYCHROMASIA 1+
[2020-10-15] MEDS: INSULIN LISPRO 100 UNITS/ML, PEN SQ-INSULIN SCH ×4 (07:00→21:41)
[2020-10-15] MEDS: INSULIN GLARGINE 100 UNITS/ML, PEN SQ-INSULIN SCH ×2 (07:56→21:42)
[2020-10-15] MEDS: ATORVASTATIN 40 MG TABLET PO SCH (07:57)
[2020-10-15] MEDS: FAMOTIDINE 20 MG TABLET PO SCH ×2 (07:57→21:40)
[2020-10-15] MEDS: VENLAFAXINE XR 37.5MG CAP.ER.24H PO SCH (07:57)
[2020-10-15] MEDS: LOSARTAN 100 MG TAB PO SCH (07:57)
[2020-10-15] MEDS: FERROUS SULFATE 325 MG TABLET PO SCH ×2 (07:57→16:00)
[2020-10-15] MEDS: ENOXAPARIN 40 MG/0.4 ML SQ SCH ×2 (07:57→16:03)
[2020-10-15] MEDS: SODIUM CHLORIDE FLUSH 10ML SYR IVF SCH ×2 (07:58→21:46)
[2020-10-15] MEDS: MAGNESIUM OXIDE 400 MG TABLET PO SCH (07:58)
[2020-10-15 08:00] VITALS: BP 118/80
[2020-10-15] MEDS: PIPERACILLIN/TAZO 4.5 GM in DEXTROSE 5% 100 ML IV SCH ×2 (08:44→16:45)
[2020-10-15] MEDS ORDERED: LOSARTAN 100 MG TAB PO SCH (09:00)
[2020-10-15 14:45] VITALS: BP 136/80
[2020-10-15 21:36] VITALS: BP 157/98
[2020-10-15] MEDS: TIZANIDINE 4MG TABLET PO SCH (21:40)
[2020-10-15] MEDS: CYCLOBENZAPRINE 10 MG TABLET PO PRN (21:46)
[2020-10-16] MEDS: PIPERACILLIN/TAZO 4.5 GM in DEXTROSE 5% 100 ML IV SCH ×3 (00:59→16:52)
[2020-10-16 01:01] VITALS: BP 106/76
[2020-10-16 05:57] LABS: MEAN CORPUSCULAR HGB CONC 32.9 g/dL (32.4-35.8); MEAN PLATELET VOLUME 7.6 fL (7.4-10.4); PLATELET COUNT 409 x10^3/uL (130-400); RED CELL DISTRIBUTION WIDTH 17.4 % (9.6-15.2)
[2020-10-16 06:02] LABS: CHLORIDE 102 mmol/L (98-107)
[2020-10-16 06:09] LABS: ALANINE AMINOTRANSFERASE 52 U/L (12-78); ALBUMIN 2.5 g/dL (3.4-5.0); ALKALINE PHOSPHATASE 108 U/L (45-117); ANION GAP 7 mmol/L (5-15); BILIRUBIN,TOTAL 0.6 mg/dL (0.2-1.0); CALCIUM 9.3 mg/dL (8.5-10.1); CREATININE 0.56 mg/dL (0.55-1.02); TOTAL PROTEIN 6.8 g/dL (6.4-8.2)
[2020-10-16 06:22] LABS: ANISOCYTOSIS 1+; BAND#(MANUAL) 0.11 x10^3/uL; BANDS%(MANUAL) 1 % (0-7); EOS#(MANUAL) 0.76 x10^3/uL (0.0-0.4); EOS% (MANUAL) 7 % (1-7); LYMPH#(MANUAL) 3.02 x10^3/uL (1-3.4); LYMPHS% (MANUAL) 28 % (22-44); METAMYELOCYTES# (MANUAL) 0.11 x10^3/uL (0-0); METAMYELOCYTES% (MANUAL) 1 % (0-1); MONOS#(MANUAL) 0.86 x10^3/uL (0.3-2.7); MONOS% (MANUAL) 8 % (2-9); POLYCHROMASIA 1+; SEG#(MANUAL) 5.94 x10^3/uL (1.8-6.8); SEGS% (MANUAL) 55 % (42-75)
[2020-10-16 06:23] LABS: <PLATELET ESTIMATE> INCREASED; <PLT MORPHOLOGY> NORMAL PLT MORPH
[2020-10-16] MEDS: GABAPENTIN 400 MG CAPSULE PO SCH ×4 (06:33→20:39)
[2020-10-16] MEDS ORDERED: LORazepam 1MG TABLET PO PRN (07:00)
[2020-10-16] MEDS ORDERED: LORazepam 2 MG/ML, 1ML ONE (07:05)
[2020-10-16] MEDS: LORazepam 2 MG/ML, 1ML IVPush PRN ×2 (07:08→16:16)
[2020-10-16] MEDS: FERROUS SULFATE 325 MG TABLET PO SCH ×2 (08:17→16:52)
[2020-10-16] MEDS: LOSARTAN 100 MG TAB PO SCH (08:17)
[2020-10-16] MEDS: HYDROcodone/APAP 5/325 TABLET PO PRN ×2 (08:17→16:15)
[2020-10-16] MEDS: MAGNESIUM OXIDE 400 MG TABLET PO SCH (08:17)
[2020-10-16] MEDS: FAMOTIDINE 20 MG TABLET PO SCH ×2 (08:17→20:39)
[2020-10-16] MEDS: VENLAFAXINE XR 37.5MG CAP.ER.24H PO SCH (08:17)
[2020-10-16] MEDS: ATORVASTATIN 40 MG TABLET PO SCH (08:17)
[2020-10-16] MEDS: INSULIN LISPRO 100 UNITS/ML, PEN SQ-INSULIN SCH ×4 (08:20→20:40)
[2020-10-16] MEDS: INSULIN GLARGINE 100 UNITS/ML, PEN SQ-INSULIN SCH ×2 (08:20→20:39)
[2020-10-16] MEDS: SODIUM CHLORIDE FLUSH 10ML SYR IVF SCH ×2 (08:22→20:41)
[2020-10-16] MEDS: ENOXAPARIN 40 MG/0.4 ML SQ SCH ×2 (08:24→20:52)
[2020-10-16 08:45] VITALS: BP 122/79
[2020-10-16 14:00] VITALS: BP 139/98
[2020-10-16 19:29] VITALS: BP 151/92
[2020-10-16] MEDS: TIZANIDINE 4MG TABLET PO SCH (20:39)
[2020-10-16] MEDS: CYCLOBENZAPRINE 10 MG TABLET PO PRN (20:52)
[2020-10-17 00:26] VITALS: BP 108/73
[2020-10-17] MEDS: PIPERACILLIN/TAZO 4.5 GM in DEXTROSE 5% 100 ML IV SCH ×3 (00:33→16:41)
[2020-10-17] MEDS: GABAPENTIN 400 MG CAPSULE PO SCH ×4 (05:10→21:26)
[2020-10-17 06:00] LABS: MEAN CORPUSCULAR HEMOGLOBIN 27.3 pg (27.0-34.8); MEAN CORPUSCULAR HGB CONC 31.8 g/dL (32.4-35.8); MEAN PLATELET VOLUME 7.5 fL (7.4-10.4); PLATELET COUNT 475 x10^3/uL (130-400); RED BLOOD COUNT 4.44 x10^6/uL (3.82-5.3); RED CELL DISTRIBUTION WIDTH 17.3 % (9.6-15.2)
[2020-10-17 06:10] LABS: ANION GAP 6 mmol/L (5-15); CALCIUM 9.1 mg/dL (8.5-10.1); CHLORIDE 101 mmol/L (98-107); CREATININE 0.71 mg/dL (0.55-1.02)
[2020-10-17 06:24] LABS: <PLATELET ESTIMATE> INCREASED; <PLT MORPHOLOGY> NORMAL PLT MORPH; ANISOCYTOSIS 1+; BASOS#(MANUAL) 0.26 x10^3/uL (0-0.1); BASOS% (MANUAL) 2 % (0-1); EOS#(MANUAL) 0.13 x10^3/uL (0.0-0.4); EOS% (MANUAL) 1 % (1-7); LYMPH#(MANUAL) 6.02 x10^3/uL (1-3.4); LYMPHS% (MANUAL) 47 % (22-44); MONOS#(MANUAL) 0.26 x10^3/uL (0.3-2.7); MONOS% (MANUAL) 2 % (2-9); POLYCHROMASIA 1+; SEG#(MANUAL) 6.14 x10^3/uL (1.8-6.8); SEGS% (MANUAL) 48 % (42-75)
[2020-10-17 06:25] LABS: SMUDGE CELLS 1+
[2020-10-17 06:32] VITALS: BP 136/87
[2020-10-17] MEDS: VENLAFAXINE XR 37.5MG CAP.ER.24H PO SCH (08:00)
[2020-10-17] MEDS: INSULIN LISPRO 100 UNITS/ML, PEN SQ-INSULIN SCH ×4 (08:01→21:40)
[2020-10-17] MEDS: SODIUM CHLORIDE FLUSH 10ML SYR IVF SCH ×2 (08:01→21:26)
[2020-10-17] MEDS: LOSARTAN 100 MG TAB PO SCH (08:01)
[2020-10-17] MEDS: FAMOTIDINE 20 MG TABLET PO SCH ×2 (08:01→21:26)
[2020-10-17] MEDS: ATORVASTATIN 40 MG TABLET PO SCH (08:01)
[2020-10-17] MEDS: FERROUS SULFATE 325 MG TABLET PO SCH ×2 (08:01→16:28)
[2020-10-17] MEDS: MAGNESIUM OXIDE 400 MG TABLET PO SCH (08:01)
[2020-10-17] MEDS: INSULIN GLARGINE 100 UNITS/ML, PEN SQ-INSULIN SCH ×2 (08:02→21:40)
[2020-10-17] MEDS: ENOXAPARIN 40 MG/0.4 ML SQ SCH ×2 (08:02→21:39)
[2020-10-17] MEDS: LORazepam 2 MG/ML, 1ML IVPush PRN ×2 (08:09→16:28)
[2020-10-17] MEDS: HYDROcodone/APAP 5/325 TABLET PO PRN ×3 (10:03→22:55)
[2020-10-17 12:37] VITALS: BP 121/82
[2020-10-17 18:52] VITALS: BP 126/79
[2020-10-17] MEDS: TIZANIDINE 4MG TABLET PO SCH (21:26)
[2020-10-17] MEDS: CYCLOBENZAPRINE 10 MG TABLET PO PRN (21:39)
[2020-10-18] MEDS: PIPERACILLIN/TAZO 4.5 GM in DEXTROSE 5% 100 ML IV SCH ×3 (00:34→16:37)
[2020-10-18 02:20] VITALS: BP 91/58
[2020-10-18 05:49] LABS: BASOPHILS % (AUTO) 1 % (0-1); EOSINOPHILS % (AUTO) 2 % (1-7); LYMPHOCYTES % (AUTO) 39 % (22-44); MEAN CORPUSCULAR HEMOGLOBIN 28.1 pg (27.0-34.8); MEAN CORPUSCULAR HGB CONC 32.9 g/dL (32.4-35.8); MEAN PLATELET VOLUME 7.3 fL (7.4-10.4); MONOCYTES % (AUTO) 6 % (2-9); NEUTROPHILS % (AUTO) 52 % (42-75); PLATELET COUNT 402 x10^3/uL (130-400); RED BLOOD COUNT 4.08 x10^6/uL (3.82-5.3); RED CELL DISTRIBUTION WIDTH 17.9 % (9.6-15.2)
[2020-10-18 06:03] LABS: CHLORIDE 100 mmol/L (98-107)
[2020-10-18] MEDS: GABAPENTIN 400 MG CAPSULE PO SCH ×4 (06:06→19:54)
[2020-10-18 06:11] LABS: ANION GAP 5 mmol/L (5-15); CALCIUM 8.8 mg/dL (8.5-10.1); CREATININE 0.71 mg/dL (0.55-1.02)
[2020-10-18] MEDS: INSULIN LISPRO 100 UNITS/ML, PEN SQ-INSULIN SCH ×4 (07:00→20:10)
[2020-10-18 07:45] VITALS: BP 120/80
[2020-10-18] MEDS: LORazepam 2 MG/ML, 1ML IVPush PRN ×2 (07:48→16:46)
[2020-10-18] MEDS: metFORMIN 500 MG TABLET PO SCH ×2 (07:48→16:37)
[2020-10-18] MEDS: FERROUS SULFATE 325 MG TABLET PO SCH ×2 (07:48→16:37)
[2020-10-18] MEDS: MAGNESIUM OXIDE 400 MG TABLET PO SCH (07:48)
[2020-10-18] MEDS: LOSARTAN 100 MG TAB PO SCH (07:49)
[2020-10-18] MEDS: SODIUM CHLORIDE FLUSH 10ML SYR IVF SCH ×2 (07:49→19:56)
[2020-10-18] MEDS: VENLAFAXINE XR 37.5MG CAP.ER.24H PO SCH (07:49)
[2020-10-18] MEDS: ENOXAPARIN 40 MG/0.4 ML SQ SCH ×2 (07:54→19:54)
[2020-10-18] MEDS: FAMOTIDINE 20 MG TABLET PO SCH ×2 (07:54→19:54)
[2020-10-18] MEDS: INSULIN GLARGINE 100 UNITS/ML, PEN SQ-INSULIN SCH ×2 (09:12→20:09)
[2020-10-18] MEDS: CYCLOBENZAPRINE 10 MG TABLET PO PRN (11:11)
[2020-10-18 12:30] VITALS: BP 144/88
[2020-10-18] MEDS: HYDROcodone/APAP 5/325 TABLET PO PRN (16:46)
[2020-10-18 19:22] VITALS: BP 158/87
[2020-10-18] MEDS: TIZANIDINE 4MG TABLET PO SCH (19:54)
[2020-10-18] MEDS: ATORVASTATIN 40 MG TABLET PO SCH (19:56)
[2020-10-18 21:46] LABS: MICROSCOPIC AUTO
[2020-10-19] MEDS: HYDROcodone/APAP 5/325 TABLET PO PRN ×2 (00:37→22:43)
[2020-10-19] MEDS: CYCLOBENZAPRINE 10 MG TABLET PO PRN ×3 (00:37→22:43)
[2020-10-19] MEDS: PIPERACILLIN/TAZO 4.5 GM in DEXTROSE 5% 100 ML IV SCH ×3 (00:38→17:00)
[2020-10-19 03:23] VITALS: BP 102/69
[2020-10-19 05:09] LABS: ANION GAP 7 mmol/L (5-15); CHLORIDE 101 mmol/L (98-107)
[2020-10-19 05:11] LABS: BASOPHILS % (AUTO) 1 % (0-1); EOSINOPHILS % (AUTO) 2 % (1-7); LYMPHOCYTES % (AUTO) 38 % (22-44); MEAN CORPUSCULAR HEMOGLOBIN 28.7 pg (27.0-34.8); MEAN CORPUSCULAR HGB CONC 33.3 g/dL (32.4-35.8); MEAN PLATELET VOLUME 7.6 fL (7.4-10.4); MONOCYTES % (AUTO) 6 % (2-9); NEUTROPHILS % (AUTO) 53 % (42-75); PLATELET COUNT 407 x10^3/uL (130-400); RED BLOOD COUNT 3.96 x10^6/uL (3.82-5.3); RED CELL DISTRIBUTION WIDTH 17.9 % (9.6-15.2)
[2020-10-19] MEDS: GABAPENTIN 400 MG CAPSULE PO SCH ×4 (05:53→22:11)
[2020-10-19] MEDS: metFORMIN 500 MG TABLET PO SCH ×2 (08:28→16:59)
[2020-10-19] MEDS: MAGNESIUM OXIDE 400 MG TABLET PO SCH (08:28)
[2020-10-19] MEDS: LOSARTAN 100 MG TAB PO SCH (08:28)
[2020-10-19] MEDS: ATORVASTATIN 40 MG TABLET PO SCH (08:28)
[2020-10-19] MEDS: FAMOTIDINE 20 MG TABLET PO SCH ×2 (08:28→22:11)
[2020-10-19] MEDS: FERROUS SULFATE 325 MG TABLET PO SCH ×2 (08:28→16:59)
[2020-10-19] MEDS: INSULIN LISPRO 100 UNITS/ML, PEN SQ-INSULIN SCH ×4 (08:31→22:43)
[2020-10-19] MEDS: VENLAFAXINE XR 37.5MG CAP.ER.24H PO SCH (08:31)
[2020-10-19] MEDS: ENOXAPARIN 40 MG/0.4 ML SQ SCH ×2 (08:32→22:12)
[2020-10-19] MEDS: INSULIN GLARGINE 100 UNITS/ML, PEN SQ-INSULIN SCH ×2 (08:32→22:43)
[2020-10-19] MEDS: SODIUM CHLORIDE FLUSH 10ML SYR IVF SCH ×2 (08:32→20:59)
[2020-10-19] MEDS: LORazepam 2 MG/ML, 1ML IVPush PRN ×2 (08:45→15:27)
[2020-10-19 09:28] VITALS: BP 132/81
[2020-10-19 13:33] VITALS: BP 128/81
[2020-10-19 19:41] VITALS: BP 137/83
[2020-10-19] MEDS: TIZANIDINE 4MG TABLET PO SCH (22:11)
[2020-10-20] MEDS: PIPERACILLIN/TAZO 4.5 GM in DEXTROSE 5% 100 ML IV SCH ×3 (00:36→17:05)
[2020-10-20 00:46] VITALS: BP 100/63
[2020-10-20 05:08] LABS: ANION GAP 7 mmol/L (5-15); CALCIUM 8.6 mg/dL (8.5-10.1); CHLORIDE 103 mmol/L (98-107); CREATININE 0.67 mg/dL (0.55-1.02)
[2020-10-20 05:16] LABS: BASOPHILS % (AUTO) 1 % (0-1); EOSINOPHILS % (AUTO) 2 % (1-7); LYMPHOCYTES % (AUTO) 41 % (22-44); MEAN CORPUSCULAR HEMOGLOBIN 28.1 pg (27.0-34.8); MEAN CORPUSCULAR HGB CONC 32.4 g/dL (32.4-35.8); MEAN PLATELET VOLUME 7.5 fL (7.4-10.4); MONOCYTES % (AUTO) 7 % (2-9); NEUTROPHILS % (AUTO) 49 % (42-75); PLATELET COUNT 417 x10^3/uL (130-400); RED BLOOD COUNT 4.16 x10^6/uL (3.82-5.3); RED CELL DISTRIBUTION WIDTH 18.8 % (9.6-15.2)
[2020-10-20] MEDS: GABAPENTIN 400 MG CAPSULE PO SCH ×4 (05:35→21:28)
[2020-10-20 06:33] VITALS: BP 128/85
[2020-10-20] MEDS: INSULIN LISPRO 100 UNITS/ML, PEN SQ-INSULIN SCH ×4 (07:00→21:00)
[2020-10-20] MEDS: SODIUM CHLORIDE FLUSH 10ML SYR IVF SCH ×2 (09:00→21:28)
[2020-10-20] MEDS: LOSARTAN 100 MG TAB PO SCH (09:50)
[2020-10-20] MEDS: ATORVASTATIN 40 MG TABLET PO SCH (09:50)
[2020-10-20] MEDS: VENLAFAXINE XR 37.5MG CAP.ER.24H PO SCH (09:51)
[2020-10-20] MEDS: FERROUS SULFATE 325 MG TABLET PO SCH ×2 (09:51→17:05)
[2020-10-20] MEDS: FAMOTIDINE 20 MG TABLET PO SCH ×2 (09:51→21:28)
[2020-10-20] MEDS: metFORMIN 500 MG TABLET PO SCH ×2 (09:51→17:04)
[2020-10-20] MEDS: MAGNESIUM OXIDE 400 MG TABLET PO SCH (09:51)
[2020-10-20] MEDS: ENOXAPARIN 40 MG/0.4 ML SQ SCH ×2 (09:52→21:28)
[2020-10-20] MEDS: INSULIN GLARGINE 100 UNITS/ML, PEN SQ-INSULIN SCH ×2 (10:17→21:40)
[2020-10-20 14:10] VITALS: BP 139/84
[2020-10-20] MEDS: HYDROcodone/APAP 5/325 TABLET PO PRN ×2 (14:17→21:28)
[2020-10-20] MEDS: LORazepam 2 MG/ML, 1ML IVPush PRN ×2 (14:17→21:43)
[2020-10-20] MEDS: CYCLOBENZAPRINE 10 MG TABLET PO PRN (17:09)
[2020-10-20 18:45] VITALS: BP 150/99
[2020-10-20] MEDS: TIZANIDINE 4MG TABLET PO SCH (21:28)
[2020-10-20 23:18] VITALS: BP 94/59
[2020-10-21 00:07] VITALS: BP 97/62
[2020-10-21] MEDS: PIPERACILLIN/TAZO 4.5 GM in DEXTROSE 5% 100 ML IV SCH ×3 (01:01→15:55)
[2020-10-21] MEDS: HYDROcodone/APAP 5/325 TABLET PO PRN ×4 (02:44→23:29)
[2020-10-21] MEDS: GABAPENTIN 400 MG CAPSULE PO SCH ×4 (05:57→21:36)
[2020-10-21 06:55] VITALS: BP 124/84
[2020-10-21] MEDS: INSULIN LISPRO 100 UNITS/ML, PEN SQ-INSULIN SCH ×4 (07:00→19:55)
[2020-10-21] MEDS: metFORMIN 500 MG TABLET PO SCH ×2 (08:34→15:55)
[2020-10-21] MEDS: VENLAFAXINE XR 37.5MG CAP.ER.24H PO SCH (08:35)
[2020-10-21] MEDS: SODIUM CHLORIDE FLUSH 10ML SYR IVF SCH ×2 (08:35→21:37)
[2020-10-21] MEDS: LOSARTAN 100 MG TAB PO SCH (08:35)
[2020-10-21] MEDS: FERROUS SULFATE 325 MG TABLET PO SCH ×2 (08:35→15:55)
[2020-10-21] MEDS: MAGNESIUM OXIDE 400 MG TABLET PO SCH (08:35)
[2020-10-21] MEDS: FAMOTIDINE 20 MG TABLET PO SCH ×2 (08:35→21:36)
[2020-10-21] MEDS: ATORVASTATIN 40 MG TABLET PO SCH (08:35)
[2020-10-21] MEDS: ENOXAPARIN 40 MG/0.4 ML SQ SCH ×2 (08:36→21:37)
[2020-10-21] MEDS: LORazepam 2 MG/ML, 1ML IVPush PRN ×3 (08:45→23:30)
[2020-10-21] MEDS: INSULIN GLARGINE 100 UNITS/ML, PEN SQ-INSULIN SCH ×2 (08:46→21:45)
[2020-10-21 12:21] VITALS: BP 147/86
[2020-10-21] MEDS: CYCLOBENZAPRINE 10 MG TABLET PO PRN ×2 (14:16→21:43)
[2020-10-21 19:59] VITALS: BP 141/87
[2020-10-21] MEDS: TIZANIDINE 4MG TABLET PO SCH (21:36)
[2020-10-22] MEDS: PIPERACILLIN/TAZO 4.5 GM in DEXTROSE 5% 100 ML IV SCH ×3 (01:04→16:48)
[2020-10-22 02:44] VITALS: BP 119/59
[2020-10-22] MEDS: GABAPENTIN 400 MG CAPSULE PO SCH ×4 (06:25→21:05)
[2020-10-22 06:58] VITALS: BP 115/84
[2020-10-22] MEDS: INSULIN LISPRO 100 UNITS/ML, PEN SQ-INSULIN SCH ×4 (07:00→20:59)
[2020-10-22] MEDS: ENOXAPARIN 40 MG/0.4 ML SQ SCH ×2 (08:01→21:04)
[2020-10-22] MEDS: MAGNESIUM OXIDE 400 MG TABLET PO SCH (08:02)
[2020-10-22] MEDS: VENLAFAXINE XR 37.5MG CAP.ER.24H PO SCH (08:02)
[2020-10-22] MEDS: LOSARTAN 100 MG TAB PO SCH (08:02)
[2020-10-22] MEDS: ATORVASTATIN 40 MG TABLET PO SCH (08:02)
[2020-10-22] MEDS: metFORMIN 500 MG TABLET PO SCH ×2 (08:03→17:01)
[2020-10-22] MEDS: metroNIDAZOLE 500 MG TABLET PO SCH ×2 (08:03→21:05)
[2020-10-22] MEDS: FAMOTIDINE 20 MG TABLET PO SCH ×2 (08:03→21:05)
[2020-10-22] MEDS: FERROUS SULFATE 325 MG TABLET PO SCH ×2 (08:03→17:01)
[2020-10-22] MEDS: SODIUM CHLORIDE FLUSH 10ML SYR IVF SCH ×2 (08:04→21:04)
[2020-10-22] MEDS: HYDROcodone/APAP 5/325 TABLET PO PRN ×3 (11:58→21:06)
[2020-10-22] MEDS: LORazepam 2 MG/ML, 1ML IVPush PRN ×2 (12:09→18:30)
[2020-10-22 12:32] VITALS: BP 149/99
[2020-10-22] MEDS: INSULIN GLARGINE 100 UNITS/ML, PEN SQ-INSULIN SCH (21:04)
[2020-10-22] MEDS: TIZANIDINE 4MG TABLET PO SCH (21:05)
[2020-10-22 22:02] VITALS: BP 149/85
[2020-10-23] MEDS: PIPERACILLIN/TAZO 4.5 GM in DEXTROSE 5% 100 ML IV SCH ×3 (00:49→16:15)
[2020-10-23] MEDS: LORazepam 2 MG/ML, 1ML IVPush PRN ×4 (00:52→21:18)
[2020-10-23 02:48] VITALS: BP 99/64
[2020-10-23] MEDS: GABAPENTIN 400 MG CAPSULE PO SCH ×4 (06:45→21:17)
[2020-10-23] MEDS: HYDROcodone/APAP 5/325 TABLET PO PRN ×4 (06:46→21:41)
[2020-10-23] MEDS: INSULIN LISPRO 100 UNITS/ML, PEN SQ-INSULIN SCH ×4 (06:58→21:26)
[2020-10-23 08:08] VITALS: BP 145/91
[2020-10-23] MEDS: metroNIDAZOLE 500 MG TABLET PO SCH ×2 (08:11→21:17)
[2020-10-23] MEDS: VENLAFAXINE XR 37.5MG CAP.ER.24H PO SCH (08:11)
[2020-10-23] MEDS: INSULIN GLARGINE 100 UNITS/ML, PEN SQ-INSULIN SCH ×2 (08:11→21:41)
[2020-10-23] MEDS: SODIUM CHLORIDE FLUSH 10ML SYR IVF SCH ×2 (08:12→21:18)
[2020-10-23] MEDS: LOSARTAN 100 MG TAB PO SCH (08:12)
[2020-10-23] MEDS: ATORVASTATIN 40 MG TABLET PO SCH (08:12)
[2020-10-23] MEDS: metFORMIN 500 MG TABLET PO SCH ×2 (08:12→16:15)
[2020-10-23] MEDS: FERROUS SULFATE 325 MG TABLET PO SCH ×2 (08:12→16:15)
[2020-10-23] MEDS: FAMOTIDINE 20 MG TABLET PO SCH ×2 (08:12→21:17)
[2020-10-23] MEDS: MAGNESIUM OXIDE 400 MG TABLET PO SCH (08:12)
[2020-10-23] MEDS: ENOXAPARIN 40 MG/0.4 ML SQ SCH ×2 (08:39→21:40)
[2020-10-23 13:07] VITALS: BP 154/97
[2020-10-23 19:05] VITALS: BP 142/88
[2020-10-23] MEDS: TIZANIDINE 4MG TABLET PO SCH (21:16)
[2020-10-23] MEDS: CYCLOBENZAPRINE 10 MG TABLET PO PRN (21:41)
[2020-10-24] MEDS: PIPERACILLIN/TAZO 4.5 GM in DEXTROSE 5% 100 ML IV SCH ×3 (00:27→17:56)
[2020-10-24 02:01] VITALS: BP 112/76
[2020-10-24] MEDS: GABAPENTIN 400 MG CAPSULE PO SCH ×4 (05:41→21:34)
[2020-10-24] MEDS: HYDROcodone/APAP 5/325 TABLET PO PRN ×3 (05:42→21:34)
[2020-10-24] MEDS: LORazepam 2 MG/ML, 1ML IVPush PRN (05:48)
[2020-10-24 07:48] VITALS: BP 153/97
[2020-10-24] MEDS: SODIUM CHLORIDE FLUSH 10ML SYR IVF SCH ×2 (09:00→21:35)
[2020-10-24] MEDS: MAGNESIUM OXIDE 400 MG TABLET PO SCH (09:00)
[2020-10-24] MEDS: FAMOTIDINE 20 MG TABLET PO SCH ×2 (09:01→21:34)
[2020-10-24] MEDS: metroNIDAZOLE 500 MG TABLET PO SCH ×2 (09:01→21:34)
[2020-10-24] MEDS: LOSARTAN 100 MG TAB PO SCH (09:01)
[2020-10-24] MEDS: metFORMIN 500 MG TABLET PO SCH ×2 (09:01→16:59)
[2020-10-24] MEDS: FERROUS SULFATE 325 MG TABLET PO SCH ×2 (09:01→16:59)
[2020-10-24] MEDS: ATORVASTATIN 40 MG TABLET PO SCH (09:01)
[2020-10-24] MEDS: INSULIN LISPRO 100 UNITS/ML, PEN SQ-INSULIN SCH ×4 (09:02→21:37)
[2020-10-24] MEDS: INSULIN GLARGINE 100 UNITS/ML, PEN SQ-INSULIN SCH ×2 (09:03→22:22)
[2020-10-24] MEDS: ENOXAPARIN 40 MG/0.4 ML SQ SCH ×2 (10:44→22:21)
[2020-10-24] MEDS: VENLAFAXINE XR 37.5MG CAP.ER.24H PO SCH (10:44)
[2020-10-24 13:45] VITALS: BP 138/85
[2020-10-24 20:07] VITALS: BP 132/84
[2020-10-24] MEDS: TIZANIDINE 4MG TABLET PO SCH (21:34)
[2020-10-24] MEDS: CYCLOBENZAPRINE 10 MG TABLET PO PRN (21:34)
[2020-10-25] MEDS: PIPERACILLIN/TAZO 4.5 GM in DEXTROSE 5% 100 ML IV SCH ×2 (01:12→08:40)
[2020-10-25 01:26] VITALS: BP 106/69
[2020-10-25] MEDS: GABAPENTIN 400 MG CAPSULE PO SCH (06:11)
[2020-10-25 06:52] VITALS: BP 114/75
[2020-10-25] MEDS: INSULIN LISPRO 100 UNITS/ML, PEN SQ-INSULIN SCH (07:00)
[2020-10-25] MEDS ORDERED: METF500T17 PO ×2 (07:55)
[2020-10-25] MEDS: INSULIN GLARGINE 100 UNITS/ML, PEN SQ-INSULIN SCH (08:39)
[2020-10-25] MEDS: MAGNESIUM OXIDE 400 MG TABLET PO SCH (08:39)
[2020-10-25] MEDS: metroNIDAZOLE 500 MG TABLET PO SCH (08:39)
[2020-10-25] MEDS: HYDROcodone/APAP 5/325 TABLET PO PRN (08:39)
[2020-10-25] MEDS: FERROUS SULFATE 325 MG TABLET PO SCH (08:39)
[2020-10-25] MEDS: ATORVASTATIN 40 MG TABLET PO SCH (08:40)
[2020-10-25] MEDS: metFORMIN 500 MG TABLET PO SCH (08:40)
[2020-10-25] MEDS: LOSARTAN 100 MG TAB PO SCH (08:40)
[2020-10-25] MEDS: SODIUM CHLORIDE FLUSH 10ML SYR IVF SCH (08:40)
[2020-10-25] MEDS: ENOXAPARIN 40 MG/0.4 ML SQ SCH (08:40)
[2020-10-25] MEDS: VENLAFAXINE XR 37.5MG CAP.ER.24H PO SCH (08:40)
[2020-10-25] MEDS: FAMOTIDINE 20 MG TABLET PO SCH (08:40)
[2020-10-25] MEDS ORDERED: METR500P29 PO (09:13)
== END 2020-10-25 10:15 | disposition home or self-care (01) | DRG 720 ==
LOC: ED 21:00 → EDIP 21:11 → ED 21:51 → SUATTDRO 22:27 → CCU 10-07 01:59 → 3N 10-11 11:05 → 5SO 10-11 14:04 → 4NE 10-22 10:20
PROVIDERS: ADMIT Internal Medicine; ATTEND Internal Medicine
PROC: 5A1945Z Respiratory Ventilation, 24-96 Consecutive Hours (ICD-10-PCS; principal; 2020-10-06)
PROC: 0BH17EZ Insertion of Endotracheal Airway into Trachea, Via Natural or Artificial Opening (ICD-10-PCS; 2020-10-06)
PROC: 02HV33Z Insertion of Infusion Device into Superior Vena Cava, Percutaneous Approach (ICD-10-PCS; 2020-10-06)
PROC: 0T9B30Z Drainage of Bladder with Drainage Device, Percutaneous Approach (ICD-10-PCS; 2020-10-06)
PROC: B548ZZA Ultrasonography of Superior Vena Cava, Guidance (ICD-10-PCS; 2020-10-06)
DX: A41.51 Sepsis due to Escherichia coli [E. coli] (principal); J96.01 Acute respiratory failure with hypoxia; N17.0 Acute kidney failure with tubular necrosis; R65.21 Severe sepsis with septic shock; J18.9 Pneumonia, unspecified organism; E11.10 Type 2 diabetes mellitus with ketoacidosis without coma; G93.41 Metabolic encephalopathy; J81.1 Chronic pulmonary edema; D63.8 Anemia in other chronic diseases classified elsewhere; E87.1 Hypo-osmolality and hyponatremia; N10 Acute pyelonephritis; B96.20 Unspecified Escherichia coli [E. coli] as the cause of diseases classified elsewhere; E11.40 Type 2 diabetes mellitus with diabetic neuropathy, unspecified; N39.0 Urinary tract infection, site not specified; B96.89 Other specified bacterial agents as the cause of diseases classified elsewhere; K21.9 Gastro-esophageal reflux disease without esophagitis; T50.912A Poisoning by multiple unspecified drugs, medicaments and biological substances, intentional self-harm, initial encounter; N76.0 Acute vaginitis; N39.3 Stress incontinence (female) (male); J45.909 Unspecified asthma, uncomplicated; E87.6 Hypokalemia; E88.09 Other disorders of plasma-protein metabolism, not elsewhere classified; F19.90 Other psychoactive substance use, unspecified, uncomplicated; F41.9 Anxiety disorder, unspecified; I11.9 Hypertensive heart disease without heart failure; E83.42 Hypomagnesemia; E78.5 Hyperlipidemia, unspecified; E66.9 Obesity, unspecified; E11.42 Type 2 diabetes mellitus with diabetic polyneuropathy; N94.10 Unspecified dyspareunia; B96.5 Pseudomonas (aeruginosa) (mallei) (pseudomallei) as the cause of diseases classified elsewhere; R31.29 Other microscopic hematuria; D50.9 Iron deficiency anemia, unspecified; Z87.440 Personal history of urinary (tract) infections; Z79.4 Long term (current) use of insulin; Z83.3 Family history of diabetes mellitus; Y92.89 Other specified places as the place of occurrence of the external cause; Z79.899 Other long term (current) drug therapy
CPT/HCPCS: 36415; 36600; 70450; 71045; 74177; 76856; 80048; 80053; 80299; 80307; 80320; 80329; 81001; 82140; 82533; 82728; 82803; 82947; 82962; 83036; 83540; 83550; 83605; 83735; 84100; 84443; 84478; 84702; 85025; 86592; 86704; 86706; 87040; 87070; 87077; 87081; 87086; 87147; 87186; 87205; 87340; 87491; 87591; 87806; 87808; 93005; 93306; 94002; 94003; 96374; 99292; G0378; J0456; J0696; J1650; J1940; J2250; J2405; J2543; J2704; J3010; J3370; Q9967; U0005; G0475; G0480; J1815; J2060; J3475; J7030; J7040; J7050; U0003